=== PATIENT | male | born 1985 | race Caucasian/White ===

== ENCOUNTER 2016-11-25 12:31 | Emergency (ER) | payer OTHER ==
[2016-11-25 12:45] VITALS: BP 178/111; PULSE 88; RESP 16; TEMP 98.5; O2SAT 95
--- NOTE | 2016-11-25 13:55 | DX ---
Right Foot, Three Views 1:22 p.m. Clinical History: 31-year-old male with pain after being run over by a heavy scissor lift. Comparison Study: None. Findings: Bone mineralization is preserved. There is some mild dorsal forefoot soft tissue swelling; however, there is no underlying fracture or dislocation identified. The tarsometatarsal and metatarso phalangeal joints are anatomically-aligned. There is no radiopaque foreign body. There is a small ailin darnell navicular spur. There is no ankle joint effusion. The subtalar joint is normal. Impression: There is no acute osseous abnormality identified.
--- NOTE | 2016-11-25 14:01 | UCPHY ---
H & P Time Seen by Provider: 11/25/16 12:49 Patient Type: New HPI/ROS: 31-year-old male presents complaining of had his foot run over by a scissor lift at work yesterday has noticed more swelling and bruising today so came to get an x-ray. Review of systems General no fever no chills no weakness HEENT no eye pain no eye discharge. No eye redness, no sore throat Respiratory no cough, no shortness of breath Cardiac no chest pain, no peripheral edema GI no abdominal pain, no diarrhea, no constipation, no nausea, no vomiting no flank pain, no hematuria, no dysuria Musculoskeletal no myalgias, Positive joint pain Heme no easy bruising, no easy bleeding Endo no polyuria, no polydipsia Skin no rashes, no pruritus Neuro no syncope, no dizziness, no headaches Psych is no suicidal ideation, no homicidal ideation Past Medical/Surgical History: noncontributory Social History: alcohol socially denies drug use Smoking Status: Never smoked Physical Exam: Alert and oriented in no acute distress nontoxic appearance, afebrile Atraumatic normocephalic Neck no JVD Lungs clear to auscultation, no respiratory distress Heart regular rate and rhythm Extremities no cyanosis clubbing edema Right foot -swelling and ecchymosis to distal foot, good capillary refill, no open wounds, good range of motion of digits diffusely tender to palpation Constitutional: Initial Vital Signs Temperature (C) 36.9 C 11/25/16 12:37 Heart Rate 88 11/25/16 12:37 Respiratory Rate 16 11/25/16 12:37 Blood Pressure 178/111 H 11/25/16 12:37 O2 Sat (%) 95 11/25/16 12:37 O2 Delivery Mode Room Air Allergies/Adverse Reactions: erythromycin base Allergy (Verified 11/25/16 12:39) Penicillins Allergy (Verified 11/25/16 12:39) Home Medications: Medication Instructions Recorded NK [No Known Home Meds] 11/25/16 Medical Decision Making - Diagnostics Imaging: right foot x-ray negative ED Course/Re-evaluation: patient seen and evaluated for right foot swelling and pain after being run over by a scissor lift at work x-ray negative for fracture impression right foot distal foot crush injury plan rest ice compression elevation follow up with Podiatry if not improving Departure - Departure Disposition: Home, Routine, Self-Care Clinical Impression: Crushing injury of foot, right Instructions: Crush Injury (ED) Referrals: NONE *PRIMARY CARE P,. [Primary Care Provider] - As per Instructions Flaca Licona DPM [Doctor of Podiatric Medicine] - As per Instructions - PQRS PQRS Measurement: not applicable
== END 2016-11-25 14:08 | disposition home or self-care (01) ==
LOC: CED 12:31
DX: S97.81XA Crushing injury of right foot, initial encounter (principal)
CPT/HCPCS: 73630-PO; G0463-PO; L3260